=== PATIENT | female | born 1990 | race Caucasian/White ===

== ENCOUNTER → 2019-07-05 11:15 | Outpatient (CLI) | payer BC, SELFPAY ==
[2019-07-05 11:56] LABS: Basophils # 0.1 K/mm3 (0-0.2); Basophils % 0.5 % (0.1-2.0); Eosinophils # 0.2 K/mm3 (0.0-0.4); Eosinophils % 1.8 % (0.1-12.0); Hematocrit 37.2 % (37.0-47.0); Hemoglobin 12.1 g/dL (12.2-16.2); Lymphocytes # 2.8 K/mm3 (0.7-4.5); Lymphocytes % 29.5 % (10-50); Mean Corpuscular HGB Conc 32.5 g/dL (31.8-35.4); Mean Corpuscular Hemoglobin 26.2 pg (27.0-31.2); Mean Corpuscular Volume 80.4 fl (81-99); Mean Platelet Volume 8.5 fl (7.4-10.4); Monocytes # 0.3 K/mm3 (0.1-1.0); Monocytes % 3.4 % (1.7-9.3); Neutrophils # 6.3 K/mm3 (1.8-7.8); Neutrophils % 64.8 % (37.0-80.0); Platelet Count 238 K/mm3 (142-424); Red Blood Count 4.63 M/mm3 (4.20-5.40); Red Cell Distribution Width 14.7 % (11.5-17.5); White Blood Count 9.6 K/mm3 (4.8-10.8)
[2019-07-05 12:59] LABS: Thyroid Stimulating Hormone 1.81 uIU/ml (0.358-3.740)
== END ==
PROVIDERS: Visit Provider Obstetrics & Gynecology
DX: Z01.419 Encounter for gynecological examination (general) (routine) without abnormal findings (principal); N93.8 Other specified abnormal uterine and vaginal bleeding
CPT/HCPCS: 36415; 84443; 85025

== ENCOUNTER → 2019-07-07 13:53 | Outpatient (CLI) | payer BC, SELFPAY ==
--- NOTE | 2019-07-07 13:55 | US_ITS ---
US transvaginal HISTORY: Dysfunctional uterine bleeding ITS.REASON: dub ORDERING PHYSICIAN: Sean Singh MD PATIENT AGE: 29 years Comparison: None FINDINGS: The uterus is 8.7 x 4.2 x 5.3 cm. Combined endometrial thickness is 6 mm. Irregularity is noted along the lower uterine segment anteriorly consistent with a scar. No uterine mass is evident. The left ovary is 3 x 1.4 cm containing small follicles the largest at 1 cm. The right ovary is 4 x 1.8 cm also containing small follicles the largest at 2 cm. Bilateral ovarian blood flow is present. No cul-de-sac fluid. IMPRESSION: Unremarkable pelvic ultrasound.
== END ==
PROVIDERS: PCP Family Medicine; Visit Provider Obstetrics & Gynecology
DX: N93.8 Other specified abnormal uterine and vaginal bleeding (principal)
CPT/HCPCS: 76830